=== PATIENT | female | born 1960 | race Caucasian/White ===

== ENCOUNTER 2022-12-29 17:41 | Emergency (ER) | payer MEDICAID, OTHER ==
[~2022-12-29] VITALS: Ht 165.1 cm; Wt 79.0 kg
[2022-12-29 17:46] VITALS: O2SAT 97
[2022-12-29] MEDS ORDERED: ACETAMINOPHEN 325MG TABLET PO STA (18:15)
[2022-12-29] MEDS ORDERED: IBUP-2029 MT (19:47)
[2022-12-29] MEDS ORDERED: ACETAMINOPHEN 325MG TABLET PO NR (20:05)
[2022-12-29 21:04] VITALS: BP 165/77; PULSE 73; RESP 20; TEMP 98.1
== END 2022-12-29 21:02 | disposition home or self-care (01) ==
LOC: ER 17:41
DX: M54.6 Pain in thoracic spine (principal); E11.9 Type 2 diabetes mellitus without complications; E78.00 Pure hypercholesterolemia, unspecified; I10 Essential (primary) hypertension
CPT/HCPCS: 71045; 99283